=== PATIENT | male | born 1955 | race Caucasian/White ===

== ENCOUNTER 2018-04-02 17:01 | Emergency (ER) | payer OTHER ==
[~2018-04-02] VITALS: Ht 162.6 cm; Wt 73.5 kg
[~2018-04-02 17:01] MED LIST: LEVAQUIN750 MG PO
[2018-04-02] MEDS ORDERED: LONITEN10 MG (17:24)
[2018-04-02] MEDS ORDERED: HYZAAR 100-12.1 EACH (17:24)
[2018-04-02] MEDS ORDERED: METFORMIN HCL500 MG (17:25)
[2018-04-02] MEDS ORDERED: DILTIAZEM 24HR360 M1 (17:25)
[2018-04-02] MEDS ORDERED: ALBUTEROL SULFAT4 MG (17:25)
[2018-04-02] MEDS ORDERED: PREDNISONE10 MG (17:25)
[2018-04-02] MEDS ORDERED: VENTOLIN HFA18 GM (17:26)
[2018-04-02] MEDS ORDERED: PLAVIX75 MG (17:27)
[2018-04-02] MEDS ORDERED: FLONASE16 GM (17:27)
[2018-04-02] MEDS ORDERED: OMEGA 3 500 SO1 EACH (17:27)
[2018-04-02] MEDS ORDERED: SIMBICORT (17:27)
[2018-04-02] MEDS ORDERED: BAYER CHILDREN'81 MG (17:27)
[2018-04-02] MEDS ORDERED: OMEPRAZOLE20 MG (17:28)
[2018-04-02] MEDS ORDERED: LORATADINE10 MG (17:28)
== END 2018-04-02 21:25 ==
LOC: ER 17:01
DX: G45.8 Other transient cerebral ischemic attacks and related syndromes (principal)

== ENCOUNTER 2018-04-03 14:37 | Inpatient (IN) | payer OTHER ==
[~2018-04-03] VITALS: Ht 162.6 cm; Wt 73.5 kg
[~2018-04-03 14:37] MED LIST changes: +ALBUTEROL SULFAT4 MG; +BAYER CHILDREN'81 MG; +DILTIAZEM 24HR360 M1; +FLONASE16 GM; +HYZAAR 100-12.1 EACH; +LONITEN10 MG; +LORATADINE10 MG; +METFORMIN HCL500 MG; +OMEGA 3 500 SO1 EACH; +OMEPRAZOLE20 MG; +PLAVIX75 MG; +PREDNISONE10 MG; +SIMBICORT; +VENTOLIN HFA18 GM
== END 2018-04-08 18:53 | DRG 65 ==
LOC: ER 14:37 → MEDJ 23:01 → MEDI 23:01 → MEDJ 04-08 18:53
PROC: B030ZZZ Magnetic Resonance Imaging (MRI) of Brain (ICD-10-PCS; 2018-04-03)
PROC: BW28ZZZ Computerized Tomography (CT Scan) of Head (ICD-10-PCS; 2018-04-03)
PROC: B246ZZZ Ultrasonography of Right and Left Heart (ICD-10-PCS; 2018-04-03)
PROC: B345ZZZ Ultrasonography of Bilateral Common Carotid Arteries (ICD-10-PCS; 2018-04-03)
PROC: B348ZZZ Ultrasonography of Bilateral Internal Carotid Arteries (ICD-10-PCS; 2018-04-03)
PROC: 3E0F7GC Introduction of Other Therapeutic Substance into Respiratory Tract, Via Natural or Artificial Opening (ICD-10-PCS; principal; 2018-04-04)
PROC: 4A12X4Z Monitoring of Cardiac Electrical Activity, External Approach (ICD-10-PCS; 2018-04-04)
PROC: BW28Y0Z Computerized Tomography (CT Scan) of Head using Other Contrast, Unenhanced and Enhanced (ICD-10-PCS; 2018-04-07)
DX: I63.511 Cerebral infarction due to unspecified occlusion or stenosis of right middle cerebral artery (principal); G81.94 Hemiplegia, unspecified affecting left nondominant side; I16.9 Hypertensive crisis, unspecified; J45.50 Severe persistent asthma, uncomplicated; I10 Essential (primary) hypertension; J44.9 Chronic obstructive pulmonary disease, unspecified; I48.0 Paroxysmal atrial fibrillation; E11.9 Type 2 diabetes mellitus without complications
CPT/HCPCS: 70551